=== PATIENT | male | born 1970 | race Caucasian/White ===

== ENCOUNTER 2019-10-30 08:47 | Emergency (ER) | payer BC ==
[2019-10-30 09:41] LABS: Absolute Lymphocytes (CBC) 1.7 K/uL (0.7-4.9); Basophils % 0.7 % (0-1.3); Hematocrit 44.7 % (39.6-49.0); Lymphocytes % 20.5 % (15.3-44.8); Protime INR 0.88; RBC Red Blood Cell Count 4.64 M/uL (4.33-5.43)
[2019-10-30 09:48] LABS: BUN Blood Urea Nitrogen 11 mg/dL (7-18); Bicarbonate 23 mmol/L (21-32); Glucose Level 90 mg/dL (74-106); Potassium 4.4 mmol/L (3.5-5.1); Sodium Level 133 mmol/L (136-145)
[2019-10-30] MEDS ORDERED: HYDROMORPHONE HCL 1 MG/ML INJ ONE (09:51)
[2019-10-30] MEDS ORDERED: HEPARIN/D5W 25,000 UNIT/500 ML BAG IV ONE (10:05)
--- NOTE | 2019-10-30 10:24 | ER ---
Nurse's Notes [facility] Name: Mahendra Good Age: 49 yrs Sex: Male : 1970 Arrival Date: 10/30/2019 Time: 08:48 Bed 20 Private MD: Diagnosis: Arterial embolism and thrombosis Presentation: 10/29 09:06 Chief complaint: Patient states: has had pain and tingling in left thumb, 3rd and 4th iw digit of left hand X 1 week, has hx of blood clot in right hand that created similar symptoms about 7-8 years ago, had surgery to repair. Coronavirus screen: Patient denies fever greater than 100.4F, cough, shortness of breath, or difficulty breathing. Proceed with normal triage process. Ebola Screen: Patient negative for fever greater than or equal to 101.5 degrees Fahrenheit, and additional compatible Ebola Virus Disease symptoms Patient denies exposure to infectious person. Patient denies travel to an Ebola-affected area in the 21 days before illness onset. No symptoms or risks identified at this time. Initial Sepsis Screen: Does the patient meet any 2 criteria? No. Patient's initial sepsis screen is negative. Does the patient have a suspected source of infection? No. Patient's initial sepsis screen is negative. Risk Assessment: Do you want to hurt yourself or someone else? Patient reports no desire to harm self or others. 09:06 Method Of Arrival: Ambulatory iw 09:06 Acuity: MELI 3 iw 09:10 Onset of symptoms is unknown. bp Triage Assessment: 09:08 General: Appears in no apparent distress. comfortable, Behavior is cooperative, bp appropriate for age, anxious. Pain: Complains of pain in left hand. EENT: No deficits noted. Neuro: No deficits noted. Cardiovascular: Rhythm is sinus rhythm. Respiratory: No deficits noted. GI: No signs and/or symptoms were reported involving the gastrointestinal system. : No signs and/or symptoms were reported regarding the genitourinary system. Derm: LEFT 1ST, 3RD AND 4TH FINGER DISTAL PHALANGES DUSKY, COLD AND PAINFUL. Musculoskeletal: No deficits noted. Historical: - Allergies: 09:12 PENICILLINS; iw - Home Meds: 09:12 olmesartan oral oral [Active]; Hydrocodone-Acetaminophen Oral [Active]; iw - PMHx: 09:12 Hypertension; iw - PSHx: 09:12 right hand; back; iw - Immunization history:: Adult Immunizations not up to date. - Social history:: Smoking status: Patient reports the use of cigarette tobacco products, smokes two packs cigarettes per day. Screenin:11 Abuse screen: Denies threats or abuse. Denies injuries from another. Nutritional bp screening: No deficits noted. Tuberculosis screening: No symptoms or risk factors identified. Fall Risk None identified. Assessment: 09:09 General: SEE TRIAGE NOTE. bp 10:11 Reassessment: PT TO U/S. bp 10:49 Reassessment: REPORT TO SHERIF VASQUES FOR [facility]. bp 11:40 Reassessment: [facility] AT B/S FOR TRANSPORT. bp Vital Signs: 09:06 BP 191 / 85; Pulse 72; Resp 16 S; Temp 98.0; Pulse Ox 100% on R/A; Weight 75.75 kg; iw Height 5 ft. 7 in. (170.18 cm); Pain 0/10; 09:54 BP 154 / 77; Pulse 63; Resp 16; Temp 97.9(TE); Pulse Ox 97% on R/A; mh5 10:49 BP 145 / 78; Pulse 62; Resp 17; Temp 97.6; Pulse Ox 97% ; bp 09:06 Body Mass Index 26.16 (75.75 kg, 170.18 cm) iw ED Course: 08:48 Patient arrived in ED. ag5 08:57 Kalia Morillo PA is PHCP. jr8 08:57 Tung Judge MD is Attending Physician. jr8 09:03 Ang Holland, RN is Primary Nurse. bp 09:09 Arm band placed on. bp 09:10 Triage completed. iw 09:11 Patient has correct armband on for positive identification. Bed in low position. Call bp light in reach. Side rails up X2. 09:25 Inserted saline lock: 20 gauge in right forearm, using aseptic technique. Blood bp collected. 09:50 initiated a transfer with Ana Lilia Baer from the [facility]. eb 10:[address] Good the vascular surgeon contract writer for [facility] with [place] for eb patient transfer consultation. 10:[address] Cerna the hospitalist contract writer for [facility] with [place] for patient transfer consultation. 10:23 administrative approval given by Ana Lilia Baer/ patient has been accepted to [facility] bed 1009/ Meg Jimenez has accepted the patient in transfer/ report to be called to [phone]. 10:32 Upper Ext Artery Uni Onur In Process Unspecified. EDMS 10:50 No provider procedures requiring assistance completed. Patient admitted, IV remains in bp place. Administered Medications: 09:45 Drug: Dilaudid 1 mg Route: IVP; Site: right forearm; bp 10:10 Follow up: Response: Pain is decreased bp 10:05 Drug: Heparin (DVT/PE Drip) 18 units/kg/hr - (HEParin 31371 units, D5W 500 ml) bp {Co-Signature: marisol (Heide Saab RN).} Route: IV; Rate: calculated rate; Site: right forearm; 10:50 Follow up: IV Status: Infusion continued upon transfer bp Outcome: 10:24 ER care complete, transfer ordered by MD. rivero 11:40 Transferred by ground EMS to [facility], Transfer form completed. bp 11:40 Condition: stable 11:40 Instructed on the need for transfer. 11:56 Patient left the ED. bp Signatures: Dispatcher [employer] Heide Avina RN RN iw Roszak, Josh, PA PA jr8 Angelica Ag Ang Whitehead RN RN Rachel Ludwig Aj[facility] Heide damon
--- NOTE | 2019-10-30 10:24 | EDPHYS ---
Physician Documentation [facility] Name: Mahendra Good Age: 49 yrs Sex: Male : 1970 Arrival Date: 10/30/2019 Time: 08:48 Bed 20 Private MD: ED Physician Tung Judge HPI: 10/29 09:36 This 49 yrs old Male presents to ER via Ambulatory with complaints of Hand jr8 Problem. 09:36 The patient or guardian reports pain, numbness, color change. The complaints affect the jr8 left hand diffusely. Onset: The symptoms/episode began/occurred gradually, 1 week(s) ago, and became worse. Modifying factors: The symptoms are alleviated by nothing, the symptoms are aggravated by movement. Associated signs and symptoms: The patient has no apparent associated signs or symptoms. Severity of symptoms: At their worst the symptoms were moderate, in the emergency department the symptoms are unchanged. The patient has experienced a previous episode. The patient has not recently seen a physician. 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 Stated that for the past week is now having same symptoms in left hand but getting worse . Historical: - Allergies: 09:12 PENICILLINS; iw - Home Meds: 09:12 olmesartan oral oral [Active]; Hydrocodone-Acetaminophen Oral [Active]; iw - PMHx: 09:12 Hypertension; iw - PSHx: 09:12 right hand; back; iw - Immunization history:: Adult Immunizations not up to date. - Social history:: Smoking status: Patient reports the use of cigarette tobacco products, smokes two packs cigarettes per day. ROS: 09:36 Eyes: Negative for injury, pain, redness, and discharge, ENT: Negative for injury, jr8 pain, and discharge, Neck: Negative for injury, pain, and swelling, Cardiovascular: Negative for chest pain, palpitations, and edema, Respiratory: Negative for shortness of breath, cough, wheezing, and pleuritic chest pain, Abdomen/GI: Negative for abdominal pain, nausea, vomiting, diarrhea, and constipation, Back: Negative for injury and pain, Neuro: Negative for headache, weakness, numbness, tingling, and seizure. 09:36 MS/extremity: Positive for pain, paresthesias, tenderness, of the left hand. Exam: 09:36 Eyes: Pupils equal round and reactive to light, extra-ocular motions intact. Lids and jr8 lashes normal. Conjunctiva and sclera are non-icteric and not injected. Cornea within normal limits. Periorbital areas with no swelling, redness, or edema. ENT: Nares patent. No nasal discharge, no septal abnormalities noted. Tympanic membranes are normal and external auditory canals are clear. Oropharynx with no redness, swelling, or masses, exudates, or evidence of obstruction, uvula midline. Mucous membranes moist. Neck: Trachea midline, no thyromegaly or masses palpated, and no cervical lymphadenopathy. Supple, full range of motion without nuchal rigidity, or vertebral point tenderness. No Meningismus. Cardiovascular: Regular rate and rhythm with a normal S1 and S2. No gallops, murmurs, or rubs. Normal PMI, no JVD. No pulse deficits. Respiratory: Lungs have equal breath sounds bilaterally, clear to auscultation and percussion. No rales, rhonchi or wheezes noted. No increased work of breathing, no retractions or nasal flaring. Abdomen/GI: Soft, non-tender, with normal bowel sounds. No distension or tympany. No guarding or rebound. No evidence of tenderness throughout. Back: No spinal tenderness. No costovertebral tenderness. Full range of motion. Skin: Warm, dry with normal turgor. Normal color with no rashes, no lesions, and no evidence of cellulitis. Neuro: Awake and alert, GCS 15, oriented to person, place, time, and situation. Cranial nerves II-XII grossly intact. Motor strength 5/5 in all extremities. Sensory grossly intact. Cerebellar exam normal. Normal gait. 09:36 Musculoskeletal/extremity: Extremities: grossly normal except: noted in the left hand: Patient has purple cold distal digits to thumb, middle, and ring fingers. Entire left hand cool and with mottling. Pain and numbness to touch. Radial pulse 2+. Normal ROM noted. Vital Signs: 09:06 BP 191 / 85; Pulse 72; Resp 16 S; Temp 98.0; Pulse Ox 100% on R/A; Weight 75.75 kg; iw Height 5 ft. 7 in. (170.18 cm); Pain 0/10; 09:54 BP 154 / 77; Pulse 63; Resp 16; Temp 97.9(TE); Pulse Ox 97% on R/A; mh5 10:49 BP 145 / 78; Pulse 62; Resp 17; Temp 97.6; Pulse Ox 97% ; bp 09:06 Body Mass Index 26.16 (75.75 kg, 170.18 cm) iw MDM: 08:57 Patient medically screened. jr8 10:18 ED course: Dr. Cerna accepted as hospitalist at [facility] . jr8 10:22 Data reviewed: vital signs, nurses notes, lab test result(s), radiologic studies, jr8 ultrasound. Data interpreted: Pulse oximetry: on room air is 97 %. Interpretation: normal. Counseling: I had a detailed discussion with the patient and/or guardian regarding: the historical points, exam findings, and any diagnostic results supporting the discharge/admit diagnosis, lab results, radiology results, the need to transfer to another facility, for higher level of care, [facility] does not immediately have the required specialist. 10/29 09:13 Order name: CBC with Diff; Complete Time: 09:47 jr8 10/29 09:13 Order name: Basic Metabolic Panel; Complete Time: 09:48 jr8 10/29 09:13 Order name: Protime (+inr); Complete Time: 09:47 jr8 10/29 09:13 Order name: Ptt, Activated; Complete Time: 09:47 jr8 10/29 10:18 Order name: Upper Ext Artery Uni Onur; Complete Time: 11:19 EDMS 10/29 09:13 Order name: IV; Complete Time: 09:30 jr8 Administered Medications: 09:45 Drug: Dilaudid 1 mg Route: IVP; Site: right forearm; bp 10:10 Follow up: Response: Pain is decreased bp 10:05 Drug: Heparin (DVT/PE Drip) 18 units/kg/hr - (HEParin 39027 units, D5W 500 ml) bp {Co-Signature: iw (Heide Saab RN).} Route: IV; Rate: calculated rate; Site: right forearm; 10:50 Follow up: IV Status: Infusion continued upon transfer bp Disposition: 12:35 Co-signature as Attending Physician, Tung Judge MD. rn Disposition: 10/30/19 10:24 Transfer ordered to [facility]. Diagnosis is Arterial embolism and thrombosis. - Reason for transfer: Higher level of care. - Accepting physician is Dr. Cerna. - Condition is Stable. - Problem is new. - Symptoms have improved. Signatures: Dispatcher [employer] EDAR Heide Saab RN RN iw Tung Judge MD MD rn Roszak, Josh, PA PA jr8 Ang Holland RN RN bp Heide damon Corrections: (The following items were deleted from the chart) 10:18 09:08 Lower Extremity Artery Uni Ltd+US.RAD.BRZ ordered. [facility] 10:23 10:18 ED course: Dr. Cerna accepted as hospitalist at [facility] . jr8 jr8 11:56 10:24 10/30/2019 10:24 Transfer ordered to [facility]. bp Diagnosis is Arterial embolism and thrombosis. Reason for transfer: Higher level of care. Accepting physician is Dr. Cerna. Condition is Stable. Problem is new. Symptoms have improved. jr8
--- NOTE | 2019-10-30 11:14 | RAD REPORT ---
EXAM DESCRIPTION: US - Upper Ext Artery Uni Onur - 10/30/2019 10:31 am CLINICAL HISTORY: Left arm numbness COMPARISON: None FINDINGS: The waveforms of left subclavian, left axillary, left brachial, left radial and left ulnar arteries are triphasic. No high-grade stenosis/occlusion noted IMPRESSION: Unremarkable exam
[2019-10-30 12:10] VITALS: O2SAT 97
[2019-10-30 12:12] VITALS: BP 145/78; TEMP 97.6
== END 2019-10-30 11:56 | disposition short-term general hospital (02) ==
LOC: ER 08:47
DX: I74.2 Embolism and thrombosis of arteries of the upper extremities (principal); I10 Essential (primary) hypertension; Z79.891 Long term (current) use of opiate analgesic; Z79.899 Other long term (current) drug therapy
CPT/HCPCS: 96365; 85025; 80048; 36415; 85610; 85730; 93931; 96375; 99285; J1170

== ENCOUNTER 2023-10-29 19:01 | Inpatient (IN) | payer BC, OTHER ==
--- NOTE | 2023-10-29 20:31 | RAD REPORT ---
EXAM DESCRIPTION: RAD - Chest Single View - 10/29/2023 8:26 pm CLINICAL HISTORY: DYSPNEA Chest pain. COMPARISON: No comparisons FINDINGS: Portable technique limits examination quality. The lungs are grossly clear. The heart is normal in size. No displaced fractures. IMPRESSION: No acute intrathoracic process suspected.
[2023-10-29 20:47] LABS: Absolute Basophils 0.1 K/uL (0-0.5); Absolute Eosinophils 0.2 K/uL (0-0.5); Absolute Lymphocytes (CBC) 2.4 K/uL (0.7-4.9); Absolute Monocytes 0.8 K/uL (0.1-1.3); Absolute Neutrophil 4.2 K/uL (1.8-8.0); Eosinophils % 2.5 % (0-4.4); Hematocrit 41.6 % (39.6-49.0); Hemoglobin 14.7 g/dL (13.6-17.9); Lymphocytes % 31.8 % (15.3-44.8); MCH 33.8 pg (27.0-35.0); MCHC 35.4 g/dL (32.0-36.0); MCV 95.5 fL (80-100); MPV 8.5 fL (7.6-11.3); Neutrophils % 54.7 % (41.7-73.7); Nucleated Red Blood Cells % 0.3 % (0-0); Platelets 178 thou/uL (152-406); RBC Red Blood Cell Count 4.36 M/uL (4.33-5.43); Red Cell Distribution Width 12.4 % (12.1-15.2)
[2023-10-29 21:18] LABS: Albumin 3.8 g/dL (3.4-5.0); Albumin/Globulin Ratio 1.2 (1.1-1.8); Bilirubin Direct 0.3 mg/dL (0-0.2); Bilirubin Indirect, Calculated 0.5 mg/dL (0.2-0.8); Bilirubin Total 0.8 mg/dL (0.2-1.0); Globulin 3.3 g/dL (2.3-3.5); Magnesium 1.8 mg/dL (1.6-2.4); Potassium 3.9 mEq/L (3.5-5.1); Protein, Total 7.1 g/dL (6.4-8.2); Troponin High Sensitivity 12.1 pg/mL (<58.9)
[2023-10-29 21:27] LABS: Anion Gap 17.9 mEq/L (5.0-15.0)
[2023-10-29] MEDS ORDERED: ONDANSETRON 4 MG/2 ML VIAL ONE (22:32)
[2023-10-29] MEDS ORDERED: ALBUTEROL 2.5 MG/3 ML NEB SOL ONE (22:32)
[2023-10-29] MEDS ORDERED: IPRATROPIUM BROM 0.5MG/2.5ML ONE (22:32)
[2023-10-29] MEDS ORDERED: NA CHLORIDE 0.9% 1,000 ML ONE ×2 (22:32→22:38)
[2023-10-29] MEDS ORDERED: CEFTRIAXONE 1000 MG/VIAL ONE (22:34)
[2023-10-29] MEDS ORDERED: THIAMINE 200 MG/2 ML INJ ONE (22:34)
[2023-10-29] MEDS ORDERED: PROMETHAZINE 25 MG TABLET ONE (22:35)
[2023-10-29] MEDS ORDERED: MULTIVITAMINS 10 ML VIAL (INJ) IV ONE (22:35)
[2023-10-29] MEDS ORDERED: AZITHROMYCIN 500 MG INJ IVPB ONE (22:35)
[2023-10-29] MEDS ORDERED: FOLIC ACID 5 MG/ML VIAL ONE (22:36)
[2023-10-29] MEDS ORDERED: NA CHLORIDE 0.9% 250 ML ONE (22:38)
[2023-10-29 22:59] LABS: Anion Gap 19.1 mEq/L (5.0-15.0)
[2023-10-29 23:00] LABS: Potassium 4.1 mEq/L (3.5-5.1)
--- NOTE | 2023-10-29 23:07 | ER ---
Nurse's Notes [facility] Name: Mahendra Good Age: 53 yrs Sex: Male : 1970 Arrival Date: 10/29/2023 Time: 19:01 Bed 14 Private MD: Diagnosis: Hypo-osmolality and hyponatremia;Alcoholism, alcohol intoxication, acute hyponatremia, generalized weakness, COPD exacerbation, tobacco use disorder Presentation: 10/28 19:14 Chief complaint: Patient states: Sinus infection for a month, seen at urgent care nj1 yesterday, given rx for abx. Vomiting x3 today, feels out of breath. Coronavirus screen: Vaccine status: Patient reports receiving the 2nd dose of the covid vaccine. Ebola Screen: Patient denies travel to an Ebola-affected area in the 21 days before illness onset. Initial Sepsis Screen: Does the patient meet any 2 criteria? No. Patient's initial sepsis screen is negative. Does the patient have a suspected source of infection? No. Patient's initial sepsis screen is negative. Risk Assessment: Do you want to hurt yourself or someone else? Patient reports no desire to harm self or others. Onset of symptoms was September 2023. 19:14 Method Of Arrival: Wheelchair nj 19:14 Acuity: MELI 3 nj1 Triage Assessment: 19:18 General: Appears in no apparent distress. uncomfortable, Behavior is calm, cooperative, nj1 appropriate for age. Pain: Denies pain. Respiratory: Reports shortness of breath at rest air hunger. Historical: - Allergies: 19:16 PENICILLINS; nj1 - PMHx: 19:16 Hypertension; nj1 - PSHx: 19:16 Shoulder repair, right (Unknown); Back surgery (Unknown); Tonsillectomy; nj1 - Immunization history:: Client reports receiving the 2nd dose of the Covid vaccine. - Infectious Disease History:: Denies. - Social history:: Smoking status: Patient reports the use of cigarette tobacco products, smokes two packs cigarettes per day. - Family history:: not pertinent. Screenin:10 [facility] ED Fall Risk Assessment (Adult) History of falling in the last 3 months, jj7 including since admission No falls in past 3 months (0 pts) Confusion or Disorientation No (0 pts) Intoxicated or Sedated No (0 pts) Impaired Gait No (0 pts) Mobility Assist Device Used No (0 pt) Altered Elimination No (0 pt) Score/Fall Risk Level 0 - 2 = Low Risk Oriented to surroundings, Maintained a safe environment. Abuse screen: Denies threats or abuse. Nutritional screening: No deficits noted. Tuberculosis screening: No symptoms or risk factors identified. Assessment: 22:10 General: Appears in no apparent distress. comfortable, Behavior is calm, cooperative, jj7 appropriate for age. Respiratory: Reports shortness of breath Airway is patent Respiratory effort is even, unlabored. Vital Signs: 19:14 BP 129 / 103; Pulse 80; Resp 20; Temp 97.8(O); Pulse Ox 100% ; Weight 76.2 kg; Height 5 [facility] ft. 7 in. ; 22:11 BP 165 / 95; Resp 74; Pulse Ox 98% ; jj7 23:00 BP 158 / 91; Pulse 78; Resp 18; Pulse Ox 100% ; j7 10/29 00:00 BP 144 / 86; Pulse 83; Resp 16; Pulse Ox 95% ; jj7 10/28 19:14 Body Mass Index 26.31 (76.20 kg, 170.18 cm) [facility] ED Course: 10/28 19:03 Patient arrived in ED. mr 19:13 Julio César Eller MD is Attending Physician. rt 19:16 Triage completed. nj1 19:18 Arm band placed on left wrist. nj1 20:28 XRAY Chest (1 view) In Process Unspecified. EDMS 20:37 Basic Metabolic Panel Sent. bc6 20:37 CBC with Diff Sent. bc6 20:37 LFT's Sent. bc6 20:37 Magnesium Sent. bc6 20:37 NT PRO-BNP Sent. bc6 20:38 Troponin HS Sent. bc6 20:38 Initial lab(s) drawn, by az, sent to lab. Inserted saline lock: 20 gauge in right upper bc6 arm, using aseptic technique. Blood collected. 20:46 EKG done, by ED staff, reviewed by Julio César Eller MD. bc6 20:51 Attending Physician role handed off by Julio César Eller MD sp4 20:51 Nav Kiser MD is Attending Physician. sp4 21:00 IV discontinued, intact, bleeding controlled, No redness/swelling at site. Pressure pf1 dressing applied, patient request to remove IV, that it was hurting. 22:07 Rosita Platt RN is Primary Nurse. jj7 22:10 Patient has correct armband on for positive identification. Placed in gown. Bed in low jj7 position. Call light in reach. Side rails up X2. Client placed on continuous cardiac and pulse oximetry monitoring. NIBP monitoring applied. cafeteria monitor on. Warm blanket given. 22:10 No provider procedures requiring assistance completed. jj7 22:25 Blood Culture Adult (2) Sent. jj7 22:25 Inserted saline lock: 20 gauge in right antecubital area, using aseptic technique. jj7 23:05 Joseph Guo MD is Hospitalizing Provider. sp4 10/29 00:16 Urine Drug Screen Sent. jj7 00:16 Urinalysis W/Microscopic Sent. jj7 03:00 Warm blanket given. kmf 05:04 Assisted to bathroom. kmf 07:09 Primary Nurse role handed off by Rosita Platt RN 07:09 Ang Holland, CAPRICE is Primary Nurse. bp Administered Medications: 10/28 22:51 Drug: Ondansetron IVP 4 mg IVP once; over 2 minutes Route: IVP; Site: right antecubital;j7 10/29 00:16 Follow up: Response: Marked relief of symptoms j7 10/28 22:51 Drug: NS 0.9% IV 1000 ml IV at 1 bolus Per protocol; 1000 mL bolus Route: IV; Rate: 1 jj7 bolus; Site: right antecubital; 10/29 12:29 Follow up: IV Status: Completed infusion bp 10/28 22:51 Drug: Rocephin - Rocephin (cefTRIAXone) IVPB 1 grams IVPB once over 30 mins; (mix in 50 jj7 mL NS) Route: IVPB; Infused Over: 30 mins; Site: right antecubital; 23:25 Follow up: IV Status: Completed infusion j7 22:51 Drug: Promethazine PO 25 mg PO once Route: PO; jj7 10/29 00:18 Follow up: Response: Nausea is decreased j7 10/28 22:55 Drug: Zithromax IVPB 500 mg IVPB once over 1 hrs; mix in 250 mL NS Route: IVPB; Infused jj7 Over: 1 hrs; Site: right antecubital; 10/29 00:11 Follow up: IV Status: Completed infusion jj7 10/28 23:01 Drug: DuoNeb Nebulize (3:1) (2.5 mg - 0.5 mg) 3 ml Nebulizer once Route: Nebulizer; jj7 10/29 00:19 Follow up: Response: Marked relief of symptoms jj7 10/28 23:30 Drug: Banana Bag - (Multivitamin IV 1 amp, NS 0.9% IV 1000 ml, Thiamine IV 100 mg, jj7 foLIC Acid IVPB 1 mg) IV at calculated rate once Route: IV; Rate: calculated rate; Site: right antecubital; 10/29 12:28 Follow up: IV Status: Completed infusion; IV Intake: 1000ml bp 02:57 Drug: Diazepam IVP 10 mg IVP once Route: IVP; Site: right antecubital; jj7 12:28 Follow up: Response: No adverse reaction bp Medication: 10/28 22:10 VIS not applicable for this client. jj7 Intake: 10/29 12:28 IV: 1000ml; Total: 1000ml. bp Outcome: 10/28 23:06 Decision to Hospitalize by Provider. sp4 10/29 14:12 Admitted to Tele accompanied by tech, via wheelchair, room 417, mb9 Condition: stable Instructed on the need for admit, 14:12 Patient left the ED. mb9 Signatures: Dispatcher [employer] EDSC Cornelio Josefina, Reg Ang Small, RN RN Rosita Cavazos RN RN jj7 Josefina Bui RN RN mb9 Julio César Eller MD MD rt Kelli Rocha RN RN pf1 Honey Kang Sergey, MD MD sp4 Bonnie Mixon RN RN nj1 Babs [facility] Corrections: (The following items were deleted from the chart) 10/28 23:05 22:51 BLOOD CULTURE*+BA.LAB.BRZ drawn and sent. j7 jj7
--- NOTE | 2023-10-29 23:07 | EDPHYS ---
Physician Documentation [facility] Name: Mahendra Good Age: 53 yrs Sex: Male : 1970 Arrival Date: 10/29/2023 Time: 19:01 Bed 14 Private MD: ED Physician Nav Kiser HPI: 10/28 20:49 This 53 yrs old Male presents to ER via Wheelchair with complaints of Shortness Of rt Breath, Nausea/Vomiting, Fever. 20:49 Patient presents to the ED with nausea, shortness of breath. Patient was seen at an rt urgent care yesterday, was prescribed a breathing treatment. States that he developed nausea, vomiting as well as lightheadedness starting today. Denies chest pain, abdominal pain, acute complaints, symptoms are moderate in severity, no other aggravating or alleviating factors.. Historical: - Allergies: 19:16 PENICILLINS; nj1 - PMHx: 19:16 Hypertension; nj1 - PSHx: 19:16 Shoulder repair, right (Unknown); Back surgery (Unknown); Tonsillectomy; nj1 - Immunization history:: Client reports receiving the 2nd dose of the Covid vaccine. - Infectious Disease History:: Denies. - Social history:: Smoking status: Patient reports the use of cigarette tobacco products, smokes two packs cigarettes per day. - Family history:: not pertinent. ROS: 20:49 Constitutional: Negative for fever, chills, and weight loss, Cardiovascular: Negative rt for chest pain, palpitations, and edema, MS/Extremity: Negative for injury and deformity, Skin: Negative for injury, rash, and discoloration, Psych: Negative for depression, anxiety, suicide ideation, homicidal ideation, and hallucinations, 20:49 Respiratory: Positive for cough, shortness of breath, 20:49 Abdomen/GI: Positive for nausea and vomiting, Negative for abdominal pain, 20:49 Neuro: Positive for dizziness, Negative for altered mental status, Exam: 20:49 Constitutional: This is a well developed, well nourished patient who is awake, alert, rt and in no acute distress. Head/Face: Normocephalic, atraumatic. Chest/axilla: Normal chest wall appearance and motion. Nontender with no deformity. No lesions are appreciated. Cardiovascular: Regular rate and rhythm with a normal S1 and S2. No gallops, murmurs, or rubs. Normal PMI, no JVD. No pulse deficits. Abdomen/GI: Soft, non-tender, with normal bowel sounds. No distension or tympany. No guarding or rebound. No evidence of tenderness throughout. Skin: Warm, dry with normal turgor. Normal color with no rashes, no lesions, and no evidence of cellulitis. Neuro: Awake and alert, GCS 15, oriented to person, place, time, and situation. Cranial nerves II-XII grossly intact. Motor strength 5/5 in all extremities. Sensory grossly intact. Cerebellar exam normal. Normal gait. 20:49 ECG was reviewed by the Attending Physician. 20:49 Respiratory: Wheezes heard on all lung currie, no respiratory distress, 23:07 EKG at 4 reveals normal sinus rhythm at the rate of 71 sp4 Vital Signs: 19:14 BP 129 / 103; Pulse 80; Resp 20; Temp 97.8(O); Pulse Ox 100% ; Weight 76.2 kg; Height 5 nj1 ft. 7 in. ; 22:11 BP 165 / 95; Resp 74; Pulse Ox 98% ; jj7 23:00 BP 158 / 91; Pulse 78; Resp 18; Pulse Ox 100% ; jj7 10/29 00:00 BP 144 / 86; Pulse 83; Resp 16; Pulse Ox 95% ; jj7 10/28 19:14 Body Mass Index 26.31 (76.20 kg, 170.18 cm) nj1 MDM: 10/28 19:23 Patient medically screened. rt 23:06 Differential diagnosis: Anemia Anxiety Reaction asthma, Bronchitis CHF exacerbation, sp4 Chronic Obstructive Pulmonary Disease pneumonia. Antibiotic administration: Rocephin and Zithromax given. Data reviewed: vital signs, nurses notes, lab test result(s), EKG, radiologic studies, CT scan, plain films. 10/29 01:32 ED course: EXAM: CTAngiography Chest With Intravenous Contrast CLINICAL HISTORY: CHEST sp4 PAIN TECHNIQUE: Axial computed tomographic angiography images of the chest with intravenous contrast. Sagittal and coronal reformatted images were created and reviewed. This CT exam was performed using one or more of the following dose reduction techniques: automated exposure control, adjustment of the mA and/or kV according to patient size, and/or use of iterative reconstruction technique. MIP reconstructed images were created and reviewed. COMPARISON: No relevant prior studies available. FINDINGS: Artifacts: Motion artifact degrades image quality and limits evaluation of subsegmental vessels. Pulmonary arteries: Unremarkable. No central or proximal segmental pulmonary arterial filling defects. Aorta: Mild atherosclerotic disease. No thoracic aortic aneurysm. Lungs: Numerous cysts within upper lobe predominance which may reflect Langerhans' Cell Histiocytosis. Numerous tree-in-bud opacities within the lungs bilaterally. Pleural space: Unremarkable. No significant effusion. No pneumothorax. Heart: Coronary artery calcification. No cardiomegaly. No significant pericardial effusion. No evidence of RV dysfunction. Bones/joints: Multilevel spondylosis. No acute fracture. No dislocation. Soft tissues: Unremarkable. Lymph nodes: Unremarkable. No enlarged lymph nodes. Liver: The liver is enlarged and diffusely low in density compatible with steatosis. IMPRESSION: 1. Motion artifact degrades image quality and limits evaluation of subsegmental vessels. No central or segmental pulmonary embolic disease. 2. Multifocal endobronchial infiltrates bilaterally. 3. Other findings as above. Electronically signed by: Brenda Fisher MD 10/30/2023 01:12 AM. 10/29 13:21 Order name: CT EDMS 10/28 19:26 Order name: Basic Metabolic Panel; Complete Time: 21:59 rt 10/28 19:26 Order name: CBC with Diff; Complete Time: 20:49 rt 10/28 19:26 Order name: LFT's; Complete Time: 21:59 rt 10/28 19:26 Order name: Magnesium; Complete Time: 21:59 rt 10/28 19:26 Order name: NT PRO-BNP; Complete Time: 21:59 rt 10/28 19:26 Order name: Troponin HS; Complete Time: 21:59 rt 10/28 19:26 Order name: Lipase; Complete Time: 21:59 rt 10/28 22:12 Order name: Blood Culture Adult (2) sp4 10/28 22:15 Order name: Alcohol Level; Complete Time: 01:30 sp4 10/28 22:15 Order name: Urine Drug Screen; Complete Time: 01:30 sp4 10/28 22:16 Order name: Urinalysis W/Microscopic; Complete Time: 01:30 sp4 10/28 22:16 Order name: Urine Sodium Random; Complete Time: 01:30 sp4 10/28 22:16 Order name: BMP; Complete Time: 23:04 sp4 10/29 00:00 Order name: Urinalysis w/ reflexes EDMS 10/29 00:00 Order name: CBC with Automated Diff EDMS 10/29 00:00 Order name: CBC with Automated Diff EDMS 10/29 00:00 Order name: Comprehensive Metabolic Panel EDMS 10/29 00:00 Order name: Comprehensive Metabolic Panel EDMS 10/29 13:03 Order name: Basic Metabolic Panel EDMS 10/28 19:26 Order name: XRAY Chest (1 view); Complete Time: 20:49 rt 10/28 22:13 Order name: CT Chest For PE Angio sp4 10/28 19:26 Order name: Cardiac monitoring; Complete Time: 22:13 rt 10/28 19:26 Order name: EKG - Nurse/Tech; Complete Time: 20:46 rt 10/28 19:26 Order name: IV Saline Lock; Complete Time: 20:37 rt 10/28 19:26 Order name: Labs collected and sent; Complete Time: 20:37 rt 10/28 19:26 Order name: O2 Per Protocol; Complete Time: 22:13 rt 10/28 19:26 Order name: O2 Sat Monitoring; Complete Time: 22:13 rt 10/29 11:44 Order name: Labs - recollect needed: recollect green top; Complete Time: 12:28 bd EC/02 20:49 Rate is 71 beats/min. Rhythm is regular, Normal Sinus Rhythm with No ectopy. QRS [place] rt is Normal. TN interval is normal. QRS interval is normal. QT interval is normal. No Q waves. Clinical impression: NSR w/ Non-specific ST/T Changes. Administered Medications: 22:51 Drug: Ondansetron IVP 4 mg IVP once; over 2 minutes Route: IVP; Site: right antecubital;7 10/29 00:16 Follow up: Response: Marked relief of symptoms 7 10/28 22:51 Drug: NS 0.9% IV 1000 ml IV at 1 bolus Per protocol; 1000 mL bolus Route: IV; Rate: 1 jj7 bolus; Site: right antecubital; 10/29 12:29 Follow up: IV Status: Completed infusion bp 10/28 22:51 Drug: Rocephin - Rocephin (cefTRIAXone) IVPB 1 grams IVPB once over 30 mins; (mix in 50 jj7 mL NS) Route: IVPB; Infused Over: 30 mins; Site: right antecubital; 23:25 Follow up: IV Status: Completed infusion j7 22:51 Drug: Promethazine PO 25 mg PO once Route: PO; 7 10/29 00:18 Follow up: Response: Nausea is decreased j 10/28 22:55 Drug: Zithromax IVPB 500 mg IVPB once over 1 hrs; mix in 250 mL NS Route: IVPB; Infused jj7 Over: 1 hrs; Site: right antecubital; 10/29 00:11 Follow up: IV Status: Completed infusion j7 10/28 23:01 Drug: DuoNeb Nebulize (3:1) (2.5 mg - 0.5 mg) 3 ml Nebulizer once Route: Nebulizer; [facility] 10/29 00:19 Follow up: Response: Marked relief of symptoms [facility] 10/28 23:30 Drug: Banana Bag - (Multivitamin IV 1 amp, NS 0.9% IV 1000 ml, Thiamine IV 100 mg, j7 foLIC Acid IVPB 1 mg) IV at calculated rate once Route: IV; Rate: calculated rate; Site: right antecubital; 10/29 12:28 Follow up: IV Status: Completed infusion; IV Intake: 1000ml bp 02:57 Drug: Diazepam IVP 10 mg IVP once Route: IVP; Site: right antecubital; j7 12:28 Follow up: Response: No adverse reaction bp Disposition Summary: 10/29/23 23:06 Hospitalization Ordered Notes: Hospitalization Status: Inpatient Admission sp4 Provider: Joseph Guo spNancy Condition: Stable sp4 Problem: new sp4 Symptoms: have improved sp4 Bed/Room Type: Standard sp4 Location: Telemetry/MedSurg (Inpatient)(10/30/23 12:38) bd Room Assignment: 417(10/30/23 12:38) bd Diagnosis - Hypo-osmolality and hyponatremia sp4 - Alcoholism, alcohol intoxication, acute hyponatremia, generalized weakness, COPD sp4 exacerbation, tobacco use disorder Forms: - Medication Reconciliation Form sp4 - SBAR form sp4 - Leadership Thank You Letter sp4 Signatures: Dispatcher [employer] Ange Obrien Juwairiyah, RN RN jj7 Julio César Eller MD MD rt Lobo, Milagros rv1 Nav Kiser MD MD sp4 Bonnie Mixon RN RN nj1 Ang Holland RN bp Corrections: (The following items were deleted from the chart) 10/28 19:26 19:26 BASIC METABOLIC PANEL+C.LAB.BRZ ordered. EDMS EDMS 19:26 19:26 CBC+H.LAB.BRZ ordered. EDMS EDMS 19:26 19:26 HEPATIC FUNCTION+C.LAB.BRZ ordered. EDMS EDMS 19:26 19:26 MAGNESIUM+C.LAB.BRZ ordered. EDMS EDMS 19:26 19:26 PROBNP+C.LAB.BRZ ordered. EDMS EDMS 19:26 19:26 Troponin High Sensitivity+C.LAB.BRZ ordered. EDMS EDMS 19:26 19:26 LIPASE+C.LAB.BRZ ordered. EDMS EDMS 19:26 19:26 Chest Single View+RAD.RAD.BRZ ordered. EDMS EDMS 23:17 23:06 Telemetry/MedSurg (Inpatient) sp4 rv1 23:17 23:06 sp4 rv1 10/29 12:38 10/28 23:17 [facility] ER HOLD rv1 bd 10/29 12:38 10/28 23:17 ERHOLD- rv1 bd
--- NOTE | 2023-10-29 23:12 | P.HP ---
Certification for Inpatient Patient admitted to: Inpatient With expected LOS: >2 Midnights Practitioner: I am a practitioner with admitting privileges, knowledge of patient current condition, hospital course, and medical plan of care. Services: Services provided to patient in accordance with Admission requirements found in Title 42 Section 412.3 of the Code of Federal Regulations Patient History Date of Service: 10/30/23 Reason for admission: SOB History of Present Illness: 53 yrs old Male with no significant past medical history except for alcohol abuse came to ER with shortness of breath . Denies any chest pain. Shortness of breath is progressively getting worse associated with generalized weakness and nausea and vomiting . No chills but associated with subjective fever. Patient was seen in the urgent care yesterday and was treated with breathing treatments. Patient had generalized weakness and fatigue and was brought to the ER. Patient denies any abdominal pain Denies any history of CAD Patient was assessed in the ER and was admitted for further management Allergies Penicillins Allergy (Verified 07/07/12 13:39) Anaphylaxis Home medications list reviewed: Yes Home Medications: Hydrocodone/Acetaminophen [Vicodin 5-500 Tablet] 1 each PO Q3HP PRN #30 tablet 07/09/12 Sulfamethoxazole/Trimethoprim [Bactrim Ds Tablet] 1 each PO Q12H #20 tablet 07/09/12 - Past Medical/Surgical History Diabetic: No Past Medical History: Reviewed- Non-Contributory Past Surgical History: Reviewed- Non-Contributory - Family History Family History: Reviewed- Non-Contributory - Social History Smoking Status: Current some day smoker Alcohol use: Yes CD- Drugs: No Caffeine use: Yes Review of Systems 10-point ROS is otherwise unremarkable Physical Examination - Vital Signs Temperature: 98.2 F Blood Pressure: 128/76 Pulse: 88 Respirations: 18 Pulse Ox (%): 96 - Physical Exam General: Alert, Oriented x3, Disheveled, Mild distress HEENT: Atraumatic, Normocephalic Neck: Supple, 2+ carotid pulse no bruit, No Thyromegaly Respiratory: Normal air movement, Crackles/rales, Expiratory wheezes Cardiovascular: No edema, Regular rate/rhythm, Normal S1 S2 Capillary refill: <2 Seconds Gastrointestinal: Soft and benign, W/out hepatosplenomegaly, No tenderness Musculoskeletal: No clubbing, No swelling Integumentary: No rashes, No breakdown Neurological: Normal strength at 5/5 x4 extr, Cranial nerves 3-12 intact, Other (Anxious ) Lymphatics: No axilla or inguinal lymphadenopathy - Studies Laboratory Data (last 24 hrs) 10/29/23 10/29/23 10/29/23 22:25 20:37 20:37 WBC 7.70 Hgb 14.7 Hct 41.6 Plt Count 178 Sodium 120 L 120 L Potassium 4.1 3.9 BUN 5 L 6 L Creatinine 0.77 0.77 Glucose 89 96 Magnesium 1.8 Total Bilirubin 0.8 AST 88 H ALT 95 H Alkaline Phosphatase 97 Lipase 34 Assessment and Plan - Problems (Diagnosis) (1) Hyponatremia Current Visit: Yes Status: Acute (2) Alcohol abuse Current Visit: Yes Status: Acute (3) Elevated LFTs Current Visit: Yes Status: Acute (4) COPD exacerbation Current Visit: Yes Status: Acute Plan: COPD exacerbation Started on bronchodilators Started on steroids Monitor telemetry Oxygen condition as needed Severe hyponatremia Monitor neuro vital signs closely Monitor sodium level Will titrate as needed Started on IV hydration Alcohol abuse Started on banana bag Watch closely for any alcohol withdrawals Elevated LFTs Possibly alcoholic hepatitis Watch LFTs in the morning GI/DVT prophylaxis Advance directive full code Discharge Plan: Home Plan to discharge in: 48 Hours - Advance Directives Does patient have a Living Will: No Does patient have a Durable POA for Healthcare: No - Code Status/Comfort Care Code Status: Full Code Time Spent Managing Pts Care (In Minutes): 54
[2023-10-29] MEDS ORDERED: ONDANSETRON 4 MG/2 ML VIAL IV PRN (23:55)
[2023-10-29] MEDS ORDERED: ACETAMINOPHEN 500 MG TAB PO PRN (23:55)
[2023-10-30] MEDS ORDERED: IPRATROPIUM BROM 0.5MG/2.5ML NEB PRN (00:23)
[2023-10-30] MEDS ORDERED: ALBUTEROL 2.5 MG/3 ML NEB SOL NEB PRN (00:23)
[2023-10-30 00:46] LABS: Barbiturates NEGATIVE (NEGATIVE); Benzodiazepines NEGATIVE (NEGATIVE); Cocaine NEGATIVE (NEGATIVE); METHAMPHETAM NEGATIVE (NEGATIVE); Methadone NEGATIVE (NEGATIVE); Opiates NEGATIVE (NEGATIVE); Phencyclidine NEGATIVE (NEGATIVE); THC Cannibis NEGATIVE (NEGATIVE)
[2023-10-30 00:48] LABS: Specific Gravity < 1.005 (1.005-1.030); Sqamous Epithelial None Seen /HPF (None Seen); Urine Bacteria None Seen /HPF (<20); Urine Bilirubin NEGATIVE (Negative); Urine Blood Negative (Negative); Urine Clarity Clear (Clear); Urine Color Colorless (Yellow); Urine Culture Reflex Order NOT NEEDED; Urine Glucose NEGATIVE (Negative); Urine Ketones NEGATIVE (Negative); Urine Micro Reflex YN NO BILL MICROSCOPIC; Urine Nitrite NEGATIVE (Negative); Urine Protein NEGATIVE (Negative); Urine RBC None Seen /HPF (None Seen); Urine Urobilinogen Normal (Normal); Urine WBC None Seen /HPF (<5); Urine pH 6.5 (5.0-7.0)
[2023-10-30] MEDS: METHYLPREDNISOLONE 40 MG INJ IV SCH (01:00)
[2023-10-30] MEDS ORDERED: DIAZEPAM 10 MG/2 ML INJ SYRINGE ONE (02:50)
[2023-10-30] MEDS ORDERED: METHYLPREDNISOLONE 40 MG INJ ONE ×2 (04:29→09:15)
[2023-10-30 04:56] VITALS: BMI 26.3
[2023-10-30 05:28] LABS: Absolute Eosinophils 0.2 K/uL (0-0.5); Absolute Lymphocytes (CBC) 1.8 K/uL (0.7-4.9); Absolute Monocytes 0.7 K/uL (0.1-1.3); Absolute Neutrophil 3.4 K/uL (1.8-8.0); Basophils % 0.8 % (0-1.3); Eosinophils % 2.8 % (0-4.4); Hematocrit 39.5 % (39.6-49.0); Hemoglobin 13.7 g/dL (13.6-17.9); Lymphocytes % 29.4 % (15.3-44.8); MCH 33.6 pg (27.0-35.0); MCHC 34.8 g/dL (32.0-36.0); MCV 96.6 fL (80-100); MPV 8.7 fL (7.6-11.3); Monocytes % 12.1 % (3.3-12.3); Neutrophils % 54.9 % (41.7-73.7); Nucleated Red Blood Cells % 0.3 % (0-0); Platelets 171 thou/uL (152-406); RBC Red Blood Cell Count 4.09 M/uL (4.33-5.43); Red Cell Distribution Width 12.4 % (12.1-15.2)
[2023-10-30 05:35] LABS: Albumin 3.3 g/dL (3.4-5.0); Albumin/Globulin Ratio 1.1 (1.1-1.8); Anion Gap 12.5 mEq/L (5.0-15.0); Bilirubin Total 0.7 mg/dL (0.2-1.0); Protein, Total 6.3 g/dL (6.4-8.2)
[2023-10-30 05:36] LABS: Potassium 4.5 mEq/L (3.5-5.1)
[2023-10-30] MEDS ORDERED: FLUMAZENIL 0.1 MG/ML (5 mL VIAL) IV PRN (08:20)
[2023-10-30] MEDS: LORAZEPAM 1 MG TABLET PO SCH (09:00)
[2023-10-30] MEDS ORDERED: FOLIC ACID 1 MG, MULTIVITAMINS INJ 10 ML, THIAMINE HCL 100 MG in NA CHLORIDE 0.9% 1,000 ML IV SCH (09:00)
[2023-10-30] MEDS: ENOXAPARIN 40 MG/0.4 ML SQ SCH (09:00)
[2023-10-30] MEDS: FOLIC ACID 1 MG, MULTIVITAMINS INJ 10 ML, THIAMINE HCL 100 MG in NA CHLORIDE 0.9% 1,000 ML IV SCH (09:00)
[2023-10-30] MEDS ORDERED: LORAZEPAM 1 MG TABLET ONE (09:16)
[2023-10-30] MEDS ORDERED: ENOXAPARIN 40 MG/0.4 ML SQ ONE (09:16)
[2023-10-30] MEDS: INFLUENZA VACCINE (for 6+ mo) 0.5 ML DOSE IMVAC ONE (11:00)
[2023-10-30] MEDS: PNEUMOCOCCAL VACCINE 0.5 ML IMVAC ONE (11:00)
[2023-10-30 13:02] LABS: Anion Gap 10.1 mEq/L (5.0-15.0)
[2023-10-30 13:03] LABS: Potassium 4.1 mEq/L (3.5-5.1)
--- NOTE | 2023-10-30 13:20 | RAD REPORT ---
EXAM DESCRIPTION: CT Angiography Chest With Intravenous Contrast CLINICAL HISTORY: CHEST PAIN TECHNIQUE: Axial computed tomographic angiography images of the chest with intravenous contrast. S agittal and coronal reformatted images were created and reviewed. This CT exam was performed using one or more of the following dose reduction techniques: automated exposure control, adjustment of t he mA and/or kV according to patient size, and/or use of iterative reconstruction technique. MIP reconstructed images were created and reviewed. COMPARISON: No relevant prior studies available. FINDINGS: Artifacts: Motion artifact degrades image quality and limits evaluation of subsegmental vessels. Pulmonary arteries: Unremarkable. No central or proximal segmental pulmonary arterial filling def ects. Aorta: Mild atherosclerotic disease. No thoracic aortic aneurysm. Lungs: Numerous cysts within upper lobe predominance which may reflect Langerhans' Cell Histiocytos is. Numerous tree-in-bud opacities within the lungs bilaterally. Pleural space: Unremarkable. No significant effusion. No pneumothorax. Heart: Coronary artery calcification. No cardiomegaly. No significant pericardial effusion. N o evidence of RV dysfunction. Bones/joints: Multilevel spondylosis. No acute fracture. No dislocation. Soft tissues: Unremarkable. Lymph nodes: Unremarkable. No enlarged lymph nodes. Liver: The liver is enlarged and diffusely low in density compatible with steatosis. IMPRESSION: 1. Motion artifact degrades image quality and limits evaluation of subsegmental vessel s. No central or segmental pulmonary embolic disease. 2. Multifocal endobronchial infiltrates bilaterally. 3. Other findings as above. Electronically signed by: Brenda Fisher MD 10/30/2023 01:12 AM CDT Due to temporary technical issues with the PACS/Fluency reporting system, reports are being signed by the in house radiologist without review as a courtesy to ensure prompt reporting. The interpreting r adiologist is fully responsible for the content of the report.
--- NOTE | 2023-10-30 17:54 | P.PN ---
Subjective Date of Service: 10/30/23 Chief Complaint: SOB Patient is experiencing hand tremors, otherwise he denies any complaint. He is able to communicate meaningfully, no confusion. Physical Examination - Vital Signs Temperature: 97.8 F Blood Pressure: 152/73 Pulse: 91 Respirations: 17 Pulse Ox (%): 94 - Physical Exam General: Alert, In no apparent distress, Oriented x3 HEENT: Mucous membr. moist/pink, Sclerae nonicteric Neck: Supple, JVD not distended Respiratory: Clear to auscultation bilaterally, Normal air movement Cardiovascular: No edema, Regular rate/rhythm, Normal S1 S2 Gastrointestinal: Normal bowel sounds, Soft and benign, Non-distended, No tenderness Musculoskeletal: No swelling Integumentary: No rashes, No cyanosis Neurological: Normal strength at 5/5 x4 extr Lymphatics: No axilla or inguinal lymphadenopathy - Studies Laboratory Data (last 24 hrs) 10/29/23 10/29/23 10/29/23 22:25 20:37 20:37 WBC 7.70 Hgb 14.7 Hct 41.6 Plt Count 178 Sodium 120 L 120 L Potassium 4.1 3.9 BUN 5 L 6 L Creatinine 0.77 0.77 Glucose 89 96 Magnesium 1.8 Total Bilirubin 0.8 AST 88 H ALT 95 H Alkaline Phosphatase 97 Lipase 34 Assessment And Plan - Plan COPD exacerbation Continue bronchodilators, steroids Oxygen condition as needed. Hyponatremia Suspected to be secondary to beer potomania Continue IV normal saline Monitor BMP every 6. Alcohol abuse/alcohol withdrawal Continue IV banana bag CIWA protocol initiated Elevated LFTs Possibly alcoholic hepatitis Monitor LFTs. DVT prophylaxis: Lovenox
[2023-10-30 19:03] LABS: Anion Gap 12.4 mEq/L (5.0-15.0); Potassium 4.4 mEq/L (3.5-5.1)
[2023-10-31] MEDS: QUETIAPINE 25 MG TAB ONE (00:17)
[2023-10-31] MEDS: HALOPERIDOL LACT 5 MG/ML INJ IM PRN (00:19)
[2023-10-31] MEDS: QUETIAPINE 25 MG TAB PO SCH (00:19)
[2023-10-31 00:51] LABS: Anion Gap 9.2 mEq/L (5.0-15.0); Potassium 4.2 mEq/L (3.5-5.1)
[2023-10-31 07:35] LABS: Anion Gap 8.9 mEq/L (5.0-15.0); Potassium 3.9 mEq/L (3.5-5.1)
[2023-10-31] MEDS: LORAZEPAM 1 MG TABLET PO PRN (08:24)
[2023-10-31 12:45] VITALS: BP 124/58; TEMP 99.3
--- NOTE | 2023-10-31 14:44 | P.DS ---
Admission Date: 10/29/23 Discharge Date: 10/31/23 Disposition: ROUTINE DISCHARGE Discharge Condition: FAIR Reason for Admission: SOB Brief History of Present Illness: 53 yrs old Male with history of alcohol abuse came to ER with shortness of breath . Patient denied any chest pain. Patient reported progressive shortness of breath associated with generalized weakness and nausea and vomiting . No chills but associated with subjective fever. Patient was seen in the urgent care yesterday and was treated with breathing treatments. Patient had generalized weakness and fatigue and was brought to the ER. Patient was assessed in the ER and noted to have severe hyponatremia. COPD exacerbation also suspected. Patient was admitted for further management. Hospital Course: Patient was admitted to the medical floor and the following medical problems addressed: COPD exacerbation Treated with bronchodilators, steroids Patient did not require oxygen. He is discharged with bronchodilators. Hyponatremia Suspected to be secondary to beer potomania Managed with IV normal saline. Sodium level significantly improved. Patient remained alert and oriented. Alcohol abuse/alcohol withdrawal Placed on IV banana bag CIWA protocol initiated. Patient barely needed Ativan. He has remained alert and oriented and ambulatory without difficulty. Patient is discharged with Ativan taper. Elevated LFTs LFTs were mildly elevated. Likely related to alcoholic hepatitis. Vital Signs/Physical Exam: Temp Pulse Resp BP Pulse Ox 99.3 F 90 16 124/58 L 95 10/31/23 12:00 10/31/23 12:00 10/31/23 12:00 10/31/23 12:00 10/31/23 12:00 General: Alert, In no apparent distress, Oriented x3 HEENT: Mucous membr. moist/pink, Sclerae nonicteric Neck: Supple, JVD not distended Respiratory: Clear to auscultation bilaterally, Normal air movement Cardiovascular: No edema, Regular rate/rhythm, Normal S1 S2 Gastrointestinal: Normal bowel sounds, Soft and benign, Non-distended, No tenderness Musculoskeletal: No clubbing, No swelling, No tenderness Integumentary: No rashes, No cyanosis Neurological: Normal gait, Normal speech, Normal strength at 5/5 x4 extr, Cranial nerves 3-12 intact Laboratory Data at Discharge: WBC 6.20 thou/uL (4.3-10.9) 10/30/23 04:43 Hgb 13.7 g/dL (13.6-17.9) 10/30/23 04:43 Hct 39.5 % (39.6-49.0) L 10/30/23 04:43 Plt Count 171 thou/uL (152-406) 10/30/23 04:43 Sodium 131 mEq/L (136-145) L 10/31/23 11:29 Potassium 4.0 mEq/L (3.5-5.1) 10/31/23 11:29 BUN 11 mg/dL (7-18) 10/31/23 11:29 Creatinine 0.87 mg/dL (0.70-1.30) 10/31/23 11:29 Glucose 104 mg/dL (74-106) 10/31/23 11:29 Magnesium 1.8 mg/dL (1.6-2.4) 10/29/23 20:37 Total Bilirubin 0.7 mg/dL (0.2-1.0) 10/30/23 04:43 AST 88 U/L (15-37) H 10/30/23 04:43 ALT 87 U/L (16-61) H 10/30/23 04:43 Alkaline Phosphatase 81 U/L (45-117) 10/30/23 04:43 Lipase 34 U/L (13-75) 10/29/23 20:37 Home Medications: Albuterol Inhaler [Ventolin Inhaler] 2 puff IH Q6H PRN #1 inh 10/31/23 Fluticasone/Salmeterol [Advair 250-50 Diskus] 1 each IH BID #60 unit 10/31/23 LORazepam [Ativan] 1 mg PO BID PRN #5 tab 10/31/23 New Medications: Fluticasone/Salmeterol [Advair 250-50 Diskus] 1 each IH BID #60 unit LORazepam [Ativan] 1 mg PO BID PRN #5 tab PRN Reason: Anxiety Albuterol Inhaler [Ventolin Inhaler] 2 puff IH Q6H PRN #1 inh PRN Reason: Shortness Of Breath Physician Discharge Instructions: Alcohol cessation advised. Fall precautions advised. Diet: Regular Activity: Fall precautions Followup: Brando Holland MD [Primary Care Provider] - 1-2 Weeks Time spent managing pt's care (in minutes): 34
[2023-10-31 15:42] VITALS: O2SAT 96
--- NOTE | 2023-10-31 15:43 | EKG ---
Test Date: 2023-10-29 Test Time: 20:44:19 [employer]: DARRELL MEASUREMENT RESULTS: Intervals: Rate: 71 WV: 190 QRSD: 96 QT: 438 QTc: 475 [place]: P: 90 WV: 190 QRS: 76 T: 93 INTERPRETIVE STATEMENTS: Normal sinus rhythm Nonspecific ST abnormality Abnormal ECG No previous ECG available for comparison Electronically Signed On 10-31-23 15:39:44 CDT by Jose Eduardo Bragg
== END 2023-10-31 15:50 | disposition home or self-care (01) | DRG 191 ==
LOC: ER 19:01 → ERHOLD 23:55 → 4TH 10-30 13:24
PROVIDERS: ADMIT Family Medicine; ATTEND Internal Medicine
DX: J44.1 Chronic obstructive pulmonary disease with (acute) exacerbation (principal); E87.1 Hypo-osmolality and hyponatremia; F10.239 Alcohol dependence with withdrawal, unspecified; F10.229 Alcohol dependence with intoxication, unspecified; K70.10 Alcoholic hepatitis without ascites; I10 Essential (primary) hypertension; F17.210 Nicotine dependence, cigarettes, uncomplicated; R79.89 Other specified abnormal findings of blood chemistry; Z88.0 Allergy status to penicillin; Y90.6 Blood alcohol level of 120-199 mg/100 ml
CPT/HCPCS: 36415; 71045; 71275; 80048; 80053; 80076; 80307; 81001; 82077; 83690; 83735; 83880; 84300; 84484; 85025; 87040; 93005; 94640; 96365; 96366; 96367; 96375; 99285; J0696; J1630; J1650; J2405; J2920; J3360; J3411; J7030; J7050; J7613; J7644; Q0169; Q9967